=== PATIENT | male | born 1990 | race African-American/Black ===

== ENCOUNTER 2017-10-03 20:10 | Emergency (ER) | payer SELFPAY ==
[2017-10-03] MEDS ORDERED: SODIUM CHLORIDE 0.9% FLUSH 10 ML FLUSH IVF (20:15)
[2017-10-03] MEDS ORDERED: ceFAZolin 2 GM PREMIX 50 ML IV (20:15)
[2017-10-03] MEDS: DIPHTH/TETANUS/ACEL PERTUSSIS (BOOSTER) 0.5 ML VIAL/PFS IM (21:07)
== END 2017-10-03 22:10 | disposition left against medical advice (07) ==
LOC: NEPE 20:10
DX: S21.91XA Laceration without foreign body of unspecified part of thorax, initial encounter (principal); J45.909 Unspecified asthma, uncomplicated; W45.8XXA Other foreign body or object entering through skin, initial encounter; Z53.21 Procedure and treatment not carried out due to patient leaving prior to being seen by health care provider; Z23 Encounter for immunization
CPT/HCPCS: 71250; 90471; 90715; 99284-25

== ENCOUNTER 2017-10-05 22:43 | Emergency (ER) | payer SELFPAY ==
[~2017-10-05] VITALS: Ht 180.3 cm; Wt 79.5 kg
[~2017-10-05 22:43] MED LIST: CEPH-460 PO
[2017-10-05 22:45] VITALS: BP 135/87; PULSE 76; RESP 16; TEMP 98.2; O2SAT 100
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
[2017-10-06] MEDS ORDERED: IBUPROFEN 600 MG TAB PO ONE (01:15)
== END 2017-10-06 01:17 | disposition home or self-care (01) ==
LOC: NEPE 22:43
DX: S41.0 Open wound of shoulder (principal); W26.0XXD Contact with knife, subsequent encounter; F20.9 Schizophrenia, unspecified; J45.909 Unspecified asthma, uncomplicated; F12.90 Cannabis use, unspecified, uncomplicated; Z72.0 Tobacco use
CPT/HCPCS: 73010; 99283